=== PATIENT | male | born 1965 | race Caucasian/White ===

== ENCOUNTER → 2021-01-16 | Outpatient (CLI) | payer BC ==
--- NOTE | 2021-01-16 15:57 | XR ---
EXAMINATION TYPE: XR Hip Complete LT DATE OF EXAM: 01/16/2021 COMPARISON: NONE HISTORY: Pain TECHNIQUE: 2 views submitted FINDINGS: There is no evidence of erosive change or acute fracture. Mild concentric narrowing of the joint space. SI joints are patent. IMPRESSION: 1. Mild arthropathy correlate for femoral acetabular impingement. Consider MRI follow-up.
== END | disposition home or self-care (01) ==
LOC: RADXRYALE 14:58
PROVIDERS: ATTEND Physician Assistant Medical
DX: M25.552 Pain in left hip (principal)
CPT/HCPCS: 73502